=== PATIENT | female | born 1965 | race Caucasian/White ===

== ENCOUNTER 2023-06-07 21:20 | Emergency (ER) | payer BC ==
[2023-06-07] MEDS ORDERED: Prochlorperazine 10 MG/2 ML VIAL ONE ×2 (22:09→23:04)
[2023-06-07] MEDS ORDERED: Lactated Ringer's 1,000 ML ONE (22:09)
[2023-06-07] MEDS ORDERED: Famotidine/PF 20 mg/2ml Vial ONE (22:09)
[2023-06-07] MEDS ORDERED: Dicyclomine 20 MG/2 ML VIAL ONE (22:09)
[2023-06-07 22:17] LABS: Band 1 % (5-11); Hematocrit 48.4 % (36.0-47.0); Hemoglobin 15.4 g/dL (12.0-16.0); Lymphocytes 13 % (21-51); MDiff Complete? YES; Macrocytosis MODERATE=16-30 cells (100X) (0-5/hpf); Mean Corpuscular HGB CONC 31.9 g/dL (32.0-36.0); Mean Corpuscular Hemoglobin 33.7 pg (27.0-31.0); Mean Corpuscular Volume 105.9 fl (78.0-98.0); Mean Platelet Volume 7.9 fL (7.4-10.4); Monocytes 4 % (0-10); Neutrophil 82 % (42-75); Platelet Adequacy Comment Appears Adequate; Platelet Count 284 10x3/uL (130-400); RBC Distribution Width 17.3 % (11.5-14.5); Red Blood Cell (RBC) Count 4.58 mill/uL (4.20-5.40); White Blood Cell (WBC) Count 7.7 10x3/uL (4.8-10.8)
[2023-06-07 22:24] LABS: ALT (SGPT) 44 U/L (8-55); AST (SGOT) 30 U/L (5-34); Albumin 4.2 g/dL (3.5-5.0); Alkaline Phosphatase 114 U/L (40-110); Anion Gap 17 mmol/L (10-20); BUN (Urea Nitrogen) 10 mg/dL (9.8-20.1); Bilirubin, Total 0.4 mg/dL (0.2-1.2); CK (CPK) 40 U/L (29-168); Calc. Creatinine Clearance 0 mL/min (70-130); Calcium 10.3 mg/dL (7.8-10.44); Carbon Dioxide 26 mmol/L (22-29); Chloride 106 mmol/L (98-107); Estimated GFR 79; Globulin 2.6 g/dL (2.4-3.5); Glucose 168 mg/dL (70-105); Potassium 3.7 mmol/L (3.5-5.1); Protein, Total 6.8 g/dL (6.0-8.3); Sodium 145 mmol/L (136-145)
[2023-06-07 22:40] LABS: Lipase Less than 4 U/L (8-78)
[2023-06-07 23:25] LABS: Bilirubin Negative (Negative); Blood, Urine Negative (Negative); Glucose, Urine (Dipstick) Negative (Negative); Ketone, Urine Negative (Negative); Leukocyte Negative (Negative); Nitrite Negative (Negative); Protein, Urine (Dipstick) 30 mg/dL (Neg-Trace); Urobilinogen 0.2 mg/dL (Less than 2); pH, Urine 8.5 (5.0-9.0)
[2023-06-07] MEDS ORDERED: Acetaminophen 500 MG TAB ONE (23:26)
[2023-06-07 23:28] LABS: CAUTI Indications for Culture Pelvic or flank pain; Clarity Hazy (Clear); RBC/HPF None Seen HPF (0-3); Squamous Epithelial 0-3 HPF (0-3); WBC/HPF 0-3 HPF (0-3)
[2023-06-07 23:30] LABS: Urine Culture Reflex No No
[2023-06-07] MEDS ORDERED: Lorazepam 2 MG/ML VIAL ONE (23:51)
[2023-06-08 00:01] LABS: SARS-CoV-2 NAA Rapid Test Not Detected (NotDetected)
[2023-06-08] MEDS ORDERED: Dexamethasone 10 MG/ML VIAL ONE (00:25)
[2023-06-08] MEDS ORDERED: Lactated Ringer's 1,000 ML ONE (00:25)
[2023-06-08] MEDS ORDERED: Haloperidol Lactate 5 MG/ML VIAL ONE (00:25)
== END 2023-06-08 01:28 | disposition short-term general hospital (02) ==
LOC: MADERS 21:20
DX: K31.84 Gastroparesis (principal); F17.210 Nicotine dependence, cigarettes, uncomplicated; R11.2 Nausea with vomiting, unspecified; I10 Essential (primary) hypertension; J44.9 Chronic obstructive pulmonary disease, unspecified; E78.5 Hyperlipidemia, unspecified; Z79.899 Other long term (current) drug therapy; Z90.49 Acquired absence of other specified parts of digestive tract; Z79.82 Long term (current) use of aspirin
CPT/HCPCS: 80053; 81001; 82550; 83605; 83690; 85025; 87040; 93005; 94760; 96361; 96372; 96374; 96375; 96376; J0780; J1100; J1630; J2060; J7120; S0028